=== PATIENT | female | born 1945 | race Caucasian/White ===

== ENCOUNTER 2017-01-07 19:49 | Observation (INO) | payer OTHER ==
[~2017-01-07] VITALS: Ht 162.6 cm; Wt 92.2 kg
[~2017-01-07 19:49] MED LIST: ATORVASTATIN CA10 MG PO; FUROSEMIDE20 MG PO; LITHIUM CARBON450 MG PO; PROPRANOLOL HCL20 MG PO; TOPIRAMATE100 MG PO; TRAMADOL HCL50 MG PO
[2017-01-07 20:19] LABS: MCH 30.4 PG (29.0-34.0); MCHC 31.8 G/DL (30.0-36.0); MCV 95.5 FL (83-99); PLATELET COUNT 202 K/uL (156-360); RBC DIS.WIDTH-CV 13.9 % (11.8-14.6); RBC DIS.WIDTH-SD 48.9 % (39-53); RED BLOOD COUNT 3.98 M/uL (3.80-5.20); WHITE BLOOD COUNT 10.5 K/uL (4.1-10.2)
[2017-01-07 20:31] LABS: CHLORIDE 111 mEq/L (99-109); POTASSIUM 4.1 mEq/L (3.7-5.4); SODIUM 143 mEq/L (136-147)
[2017-01-07 20:33] LABS: GLUCOSE 108 mg/dL (70-99)
[2017-01-07 20:34] LABS: ANION GAP 12 MEQ/L (2-14)
[2017-01-07 20:36] LABS: GFR ESTIMATE (CALCULATED) 47 mL/min/
[2017-01-07 20:37] LABS: UREA NITROGEN (BUN) 27 mg/dL (9-23)
[2017-01-07 21:25] LABS: PROTHROMBIN TIME 10.2 (9.2-11.2); PTT 24.9 (25-32)
[2017-01-07 21:29] LABS: TOTAL BILIRUBIN 0.4 mg/dL (0.0-1.0)
[2017-01-07 21:30] LABS: ALKALINE PHOSPHATASE 66 IU/L (3-129)
[2017-01-07 21:33] LABS: DIRECT BILIRUBIN 0.1 mg/dL (0.0-0.3)
[2017-01-07 21:34] LABS: LIPASE 42 U/L (1.0-51.0)
[2017-01-07] MEDS ORDERED: CRESTOR20 MG PO (23:24)
[2017-01-07 23:32] LABS: HEMATOCRIT 34.1 % (36.0-46.0); MCV 95.8 FL (83-99)
[2017-01-07 23:47] LABS: ADD MIUA? YES; BILIRUBIN NEGATIVE; BLOOD SMALL; COLOR YELLOW ((YELLOW)); GLUCOSE (STRIP) NEGATIVE; KETONES NEGATIVE; LEUKOCYTES SMALL; NITRITE NEGATIVE; PROTEIN (STRIP) NEGATIVE; UROBILINOGEN 0.2 MG/DL (0.2-1.0)
[2017-01-08 00:01] LABS: BACTERIA NONE SEEN /HPF; EPITHELIAL CELLS 1+ /HPF; MUCUS TRACE /LPF; RED BLOOD CELLS 0-5 /HPF (0-5); UCUL ADDED? NO
[2017-01-08 02:53] VITALS: BP 127/72
[2017-01-08 07:18] LABS: HEMATOCRIT 33.2 % (36.0-46.0); MCV 96.2 FL (83-99)
[2017-01-08 07:43] VITALS: BP 116/71
[2017-01-08 07:43] LABS: ALKALINE PHOSPHATASE 66 IU/L (3-129); ANION GAP 9 MEQ/L (2-14); CHLORIDE 114 MEQ/L (99-109); GFR ESTIMATE (CALCULATED) 58 mL/min/; GLUCOSE 130 mg/dL (70-99); POTASSIUM 4.1 MEQ/L (3.7-5.4); SAMPLE HEMOLYSIS CHECK 0; SAMPLE ICTERIC CHECK 0; SAMPLE LIPEMIA CHECK 0; SODIUM 143 MEQ/L (136-147); TOTAL BILIRUBIN 0.4 MG/DL (0.0-1.0); UREA NITROGEN (BUN) 21 mg/dL (9-23)
[2017-01-08 11:12] VITALS: BP 116/68
[2017-01-08 12:05] LABS: HEMATOCRIT 35.3 % (36.0-46.0); MCV 95.7 FL (83-99)
[2017-01-08 15:09] VITALS: BP 142/68
[2017-01-08 19:09] LABS: HEMATOCRIT 35.8 % (36.0-46.0)
[2017-01-08 20:30] VITALS: BP 116/75
[2017-01-09 00:45] VITALS: BP 119/66
[2017-01-09 04:23] VITALS: BP 124/69
[2017-01-09 06:08] LABS: HEMATOCRIT 32.8 % (36.0-46.0); MCH 29.8 PG (29.0-34.0); MCHC 31.1 G/DL (30.0-36.0); MCV 95.9 FL (83-99); MEAN PLAT.VOLUME 12.6 uM^3 (9.5-12.4); PLATELET COUNT 159 K/uL (156-360); RBC DIS.WIDTH-CV 13.8 % (11.8-14.6); RBC DIS.WIDTH-SD 48.7 % (39-53); RED BLOOD COUNT 3.42 M/uL (3.80-5.20); WHITE BLOOD COUNT 10.2 K/uL (4.1-10.2)
[2017-01-09] MEDS ORDERED: PANTOPRAZOLE SO40 MG PO (09:09)
[2017-01-09] MEDS ORDERED: FLAGYL500 MG PO (09:10)
[2017-01-09] MEDS ORDERED: CIPRO500 MG PO (09:10)
== END 2017-01-09 13:21 | disposition home or self-care (01) ==
LOC: EME 19:49 → EDOF 01-08 01:28 → 5WEST 01-08 02:15
PROVIDERS: Emergency Medicine; Internal Medicine; Internal Medicine Gastroenterology
DX: K57.33 Diverticulitis of large intestine without perforation or abscess with bleeding (principal); D62 Acute posthemorrhagic anemia; N85.9 Noninflammatory disorder of uterus, unspecified; E78.00 Pure hypercholesterolemia, unspecified; E78.5 Hyperlipidemia, unspecified; K80.20 Calculus of gallbladder without cholecystitis without obstruction; F17.200 Nicotine dependence, unspecified, uncomplicated; G89.29 Other chronic pain; M54.9 Dorsalgia, unspecified; F31.9 Bipolar disorder, unspecified
CPT/HCPCS: 74177; 80048; 80053; 80076; 80178; 81003; 83605; 83690; 85014; 85018; 85027; 85610; 85730; 86900; 86901; 99281; 99285; C9113; G0378; J0744; J2354; J7030; J7050

== ENCOUNTER 2017-03-07 09:10 | Day surgery (SDC) | payer OTHER ==
[~2017-03-07] VITALS: Ht 162.6 cm; Wt 90.7 kg
[~2017-03-07 09:10] MED LIST changes: +CIPRO500 MG PO; +CRESTOR20 MG PO; +FLAGYL500 MG PO; +PANTOPRAZOLE SO40 MG PO
[2017-03-07 10:25] VITALS: BP 135/64
[2017-03-07 13:30] VITALS: BP 135/70
[2017-03-07 14:19] VITALS: BP 139/73
== END 2017-03-07 14:28 | disposition home or self-care (01) ==
LOC: SDC 09:10
PROC: 0UBC8ZX Excision of Cervix, Via Natural or Artificial Opening Endoscopic, Diagnostic (ICD-10-PCS; principal; 2017-03-07)
PROC: 0UDB8ZX Extraction of Endometrium, Via Natural or Artificial Opening Endoscopic, Diagnostic (ICD-10-PCS; principal; 2017-03-07)
PROC: 0UB98ZX Excision of Uterus, Via Natural or Artificial Opening Endoscopic, Diagnostic (ICD-10-PCS; principal; 2017-03-07)
DX: N84.0 Polyp of corpus uteri (principal); N84.1 Polyp of cervix uteri; N95.0 Postmenopausal bleeding; Z87.891 Personal history of nicotine dependence; F31.9 Bipolar disorder, unspecified; E78.5 Hyperlipidemia, unspecified; E66.9 Obesity, unspecified; Z68.35 Body mass index [BMI] 35.0-35.9, adult; Z82.3 Family history of stroke; Z82.49 Family history of ischemic heart disease and other diseases of the circulatory system; Z83.3 Family history of diabetes mellitus; Z81.8 Family history of other mental and behavioral disorders
CPT/HCPCS: 88305; J0131; J1100; J1885; J2250; J2405; J3010

== ENCOUNTER 2017-05-04 21:44 | Emergency (ER) | payer OTHER ==
[~2017-05-04] VITALS: Ht 160 cm; Wt 95.7 kg
[2017-05-04 23:09] LABS: HEMATOCRIT 35.2 % (36.0-46.0); MCH 29.8 PG (29.0-34.0); MCHC 31.5 G/DL (30.0-36.0); MCV 94.6 FL (83-99); MEAN PLAT.VOLUME 11.9 uM^3 (9.5-12.4); PLATELET COUNT 198 K/uL (156-360); RBC DIS.WIDTH-CV 13.5 % (11.8-14.6); RBC DIS.WIDTH-SD 46.7 % (39-53); RED BLOOD COUNT 3.72 M/uL (3.80-5.20); WHITE BLOOD COUNT 11.8 K/uL (4.1-10.2)
[2017-05-04 23:20] LABS: CHLORIDE 110 mEq/L (99-109); POTASSIUM 3.8 mEq/L (3.7-5.4); SODIUM 144 mEq/L (136-147)
[2017-05-04 23:22] LABS: GLUCOSE 137 mg/dL (70-99)
[2017-05-04 23:23] LABS: ANION GAP 11 MEQ/L (2-14)
[2017-05-04 23:26] LABS: GFR ESTIMATE (CALCULATED) 47 mL/min/
[2017-05-04 23:27] LABS: UREA NITROGEN (BUN) 26 mg/dL (9-23)
[2017-05-04 23:31] LABS: ADD MIUA? YES; BILIRUBIN NEGATIVE; BLOOD MODERATE; COLOR STRAW ((YELLOW)); GLUCOSE (STRIP) NEGATIVE; KETONES NEGATIVE; LEUKOCYTES TRACE; NITRITE NEGATIVE; PROTEIN (STRIP) NEGATIVE; SPECIFIC GRAVITY 1.009 (1.000-1.030); UROBILINOGEN 0.2 MG/DL (0.2-1.0)
[2017-05-04] MEDS ORDERED: AMOXICILLIN500 MG PO (23:54)
[2017-05-04] MEDS ORDERED: NAPROSYN500 MG PO (23:54)
[2017-05-05 00:20] LABS: BACTERIA NONE SEEN /HPF; EPITHELIAL CELLS 1+ /HPF; MUCUS TRACE /LPF; RED BLOOD CELLS 0-5 /HPF (0-5); WHITE BLOOD CELLS 0-5 /HPF (0-5)
[2017-05-05 00:44] VITALS: BP 123/69
== END 2017-05-05 00:47 | disposition home or self-care (01) ==
LOC: EME 21:44
PROVIDERS: Nurse Practitioner Family
DX: H60.91 Unspecified otitis externa, right ear (principal); H66.91 Otitis media, unspecified, right ear; N28.9 Disorder of kidney and ureter, unspecified; E78.5 Hyperlipidemia, unspecified; Z87.891 Personal history of nicotine dependence
CPT/HCPCS: 80048; 81003; 85027; 99281; 99284

== ENCOUNTER 2017-12-02 10:24 | Emergency (ER) | payer OTHER ==
[~2017-12-02] VITALS: Ht 162.6 cm; Wt 98.2 kg
[~2017-12-02 10:24] MED LIST changes: +AMOXICILLIN500 MG PO; +NAPROSYN500 MG PO
[2017-12-02 13:47] LABS: HEMATOCRIT 35.2 % (36.0-46.0); HEMOGLOBIN 11.2 G/DL (11.9-15.5); MCH 30.4 PG (29.0-34.0); MCHC 31.8 G/DL (30.0-36.0); MCV 95.4 FL (83-99); PLATELET COUNT 181 K/uL (156-360); RBC DIS.WIDTH-CV 13.2 % (11.8-14.6); RBC DIS.WIDTH-SD 45.8 % (39-53); RED BLOOD COUNT 3.69 M/uL (3.80-5.20); WHITE BLOOD COUNT 9.3 K/uL (4.1-10.2)
[2017-12-02 13:56] LABS: MAGNESIUM 2.3 mg/dL (1.3-2.7)
[2017-12-02 14:00] LABS: SERUM ETHYL ALCOHOL < 10 mg/dL
[2017-12-02 14:28] LABS: APPEARANCE CLEAR ((CLEAR)); BILIRUBIN NEGATIVE; BLOOD SMALL; COLOR YELLOW ((YELLOW)); GLUCOSE (STRIP) NEGATIVE; KETONES NEGATIVE; LEUKOCYTES NEGATIVE; NITRITE NEGATIVE; PROTEIN (STRIP) 30; UROBILINOGEN 0.2 MG/DL (0.2-1.0)
[2017-12-02 14:33] LABS: BACTERIA RARE /HPF; EPITHELIAL CELLS RARE /HPF; MUCUS NONE SEEN /LPF; RED BLOOD CELLS 0-5 /HPF (0-5); WHITE BLOOD CELLS 0-5 /HPF (0-5)
[2017-12-02 14:36] LABS: AMPHETAMINE NEGATIVE (500 ng/mL); BARBITURATES NEGATIVE (200 ng/mL); BENZODIAZEPINES NEGATIVE (150 ng/mL); BUPRENORPHINE NEGATIVE (10 ng/mL); COCAINE NEGATIVE (150 ng/mL); METHADONE NEGATIVE (200 ng/mL); METHAMPHETAMINE NEGATIVE (500 ng/mL); OPIATES (MORPHINE) NEGATIVE (100 ng/mL); OXYCODONE NEGATIVE (100 ng/mL); PHENCYCLIDINE NEGATIVE (25 ng/mL); PROPOXYPHENE NEGATIVE (300 ng/mL); THC CANNABINOIDS NEGATIVE (50 ng/mL); TRICYCLIC ANTIDEPRESSANTS NEGATIVE (300 ng/mL)
[2017-12-02 15:00] LABS: THYROTROPIN (TSH) 3.5 MIU/L (0.4-5.5)
[2017-12-02] MEDS ORDERED: ULTRAM50 MG PO (16:01)
[2017-12-02 16:12] VITALS: BP 131/72
== END 2017-12-02 16:25 | disposition home or self-care (01) ==
LOC: EME 10:24
PROVIDERS: Emergency Medicine
DX: M54.12 Radiculopathy, cervical region (principal); G62.9 Polyneuropathy, unspecified; E78.5 Hyperlipidemia, unspecified; F32.9 Major depressive disorder, single episode, unspecified; Z87.891 Personal history of nicotine dependence
CPT/HCPCS: 80178; 81003; 83735; 84443; 85027; 99281; 99284; G0480